=== PATIENT | female | born 1955 | race Caucasian/White ===

== ENCOUNTER 2020-03-10 17:13 | Inpatient (IN) ==
[2020-03-10] MEDS ORDERED: Aspirin 325 MG TABLET PO ONE (17:21)
[2020-03-10 18:02] LABS: Prothrombin Time 11.6 Seconds (9.4-12.1)
[2020-03-10 18:04] LABS: Activated Partial Thrombo Time 26.4 Seconds (26.0-36.0)
[2020-03-10 18:09] LABS: Basophils # 0.1 K/mcL (0.0-0.2); Basophils % 0.8 %; Eosinophils # 0.2 K/mcL (0.0-0.6); Eosinophils % 1.7 %; Hematocrit 41.4 % (35.3-44.9); Hemoglobin 13.7 g/dL (11.5-15.4); Lymphocytes # 1.5 K/mcL (0.6-4.6); Lymphocytes % 16.5 %; Mean Corpuscular HGB Conc 33.1 g/dL (31.6-35.5); Mean Corpuscular Hemoglobin 31.1 pg (28.0-33.3); Mean Corpuscular Volume 93.9 fL (83.0-100.0); Mean Platelet Volume 10.3 fL (9.4-12.4); Monocytes # 0.8 K/mcL (0.0-1.3); Monocytes % 8.7 %; Neutrophils # 6.5 K/mcL (1.6-8.9); Platelet Count 278 K/mcL (140-400); Red Blood Count 4.41 M/mcL (3.82-4.97); Red Cell Distribution Width 11.6 % (11.5-14.5); Segmented Neutrophils % 71.3 %; White Blood Count 9.2 K/mcL (4.3-11.1)
[2020-03-10] MEDS ORDERED: Isovue-370 500 ML BOTTLE IVP ONE (18:15)
[2020-03-10 18:36] LABS: Calcium 9.3 mg/dL (8.6-10.3); Potassium 4.5 mEq/L (3.5-5.1); Thyroid Stimulating Hormone 9.623 mcIU/mL (0.340-5.600); Troponin I 0.25 ng/mL (< 0.04)
[2020-03-10] MEDS ORDERED: 0.9 % Sodium Chloride 1,000 ML IVC ONE (18:38)
[2020-03-10 19:58] LABS: Bacteria,Urine Few per hpf (None-Few); Bilirubin,Urine Negative (Negative); Blood,Urine Negative (Negative); Clarity,Urine Clear (Clear); Color,Urine Light-Yellow (Yellow); Glucose,Urine (UA) Normal (Normal); Hyaline Casts,Urine Few per lpf (None Seen); Ketones,Urine Negative (Negative); Leukocyte Esterase,Urine Small (Negative); Nitrite,Urine Negative (Negative); PH,Urine 6.5 pH Units (5.0-8.0); Protein,Urine Negative (Neg-Trace); RBC,Urine 0-3 per hpf (0-3); Specific Gravity,Urine 1.017 (1.010-1.025); Squamous Epithelial Cell,Urine Few per hpf (None-Few); Urobilinogen,Urine Normal (Normal); WBC,Urine 15-30 per hpf (0-3)
[2020-03-10] MEDS ORDERED: Naloxone 0.4 MG/ML INJ IVP PRN (21:02)
[2020-03-10] MEDS ORDERED: Acetaminophen 325 MG TABLET PO PRN (21:02)
[2020-03-10 21:04] LABS: Adenovirus Not Detected (Not Detect); Bordetella Pertussis Not Detected (Not Detect); Chlamydophila pneumoniae Not Detected (Not Detect); Coronavirus 229E Not Detected (Not Detect); Coronavirus HKU1 Not Detected (Not Detect); Coronavirus NL63 Not Detected (Not Detect); Coronavirus OC43 Not Detected (Not Detect); Human Metapneumovirus Not Detected (Not Detect); Human Rhinovirus/Enterovirus Not Detected (Not Detect); Influenza A Subtype 2009 H1 Not Detected (Not Detect); Influenza B Not Detected (Not Detect); Parainfluenza Virus 1 Not Detected (Not Detect); Parainfluenza Virus 2 Not Detected (Not Detect); Parainfluenza Virus 3 Not Detected (Not Detect); Parainfluenza Virus 4 Not Detected (Not Detect); Respiratory Syncytial Virus Not Detected (Not Detect); SARS-CoV-2 Not Detected (Not Detect)
[2020-03-10 21:05] LABS: Mycoplasma pneumoniae Not Detected (Not Detect)
[2020-03-10] MEDS: Latanoprost 2.5 ML BOTTLE BOTH EYES SCH (22:33)
[2020-03-11 00:56] LABS: Hematocrit 37.3 % (35.3-44.9); Hemoglobin 12.2 g/dL (11.5-15.4); Mean Corpuscular HGB Conc 32.7 g/dL (31.6-35.5); Mean Corpuscular Hemoglobin 30.6 pg (28.0-33.3); Mean Corpuscular Volume 93.5 fL (83.0-100.0); Mean Platelet Volume 10.6 fL (9.4-12.4); Platelet Count 240 K/mcL (140-400); Red Blood Count 3.99 M/mcL (3.82-4.97); Red Cell Distribution Width 11.6 % (11.5-14.5)
[2020-03-11 01:08] LABS: Calcium 8.7 mg/dL (8.6-10.3); Chol/HDL Ratio 2.3 (0-4.9); Phosphorous 3.6 mg/dL (2.7-4.5); Potassium 3.9 mEq/L (3.5-5.1)
[2020-03-11] MEDS: *HR* Heparin 5,000 UNIT/ML VIAL SQ SCH ×3 (05:18→22:39)
[2020-03-11] MEDS ORDERED: carvediloL 6.25 MG TABLET PO SCH ×2 (08:00→17:00)
[2020-03-11] MEDS: Aspirin Enteric Coated 81 MG Tablet PO SCH (08:09)
[2020-03-11] MEDS: Gabapentin 100 MG CAPSULE PO SCH ×2 (08:15→22:38)
[2020-03-11] MEDS: Letrozole 2.5 MG TABLET PO SCH (12:53)
[2020-03-11] MEDS ORDERED: carvediloL 6.25 MG TABLET PO ONE (13:46)
[2020-03-11] MEDS ORDERED: 0.9 % Sodium Chloride 1,000 ML IVC SCH (14:30)
[2020-03-11] MEDS ORDERED: Amiodarone Premix 150 MG/100 ML BAG IVPB ONE (14:30)
[2020-03-11] MEDS ORDERED: Amiodarone Premix 360 MG/200 ML BAG IVC ONE (15:00)
[2020-03-11 15:47] LABS: Triiodothyronine (T3) Free 2.77 pg/mL (2.50-3.90)
[2020-03-11] MEDS: Latanoprost 2.5 ML BOTTLE BOTH EYES SCH (22:51)
[2020-03-11] MEDS: Amiodarone Premix 360 MG/200 ML BAG IVC SCH (23:52)
[2020-03-12 05:45] LABS: Hematocrit 38.4 % (35.3-44.9); Hemoglobin 12.2 g/dL (11.5-15.4); Mean Corpuscular HGB Conc 31.8 g/dL (31.6-35.5); Mean Corpuscular Hemoglobin 30.3 pg (28.0-33.3); Mean Corpuscular Volume 95.3 fL (83.0-100.0); Platelet Count 226 K/mcL (140-400); Red Blood Count 4.03 M/mcL (3.82-4.97); Red Cell Distribution Width 11.7 % (11.5-14.5); White Blood Count 6.6 K/mcL (4.3-11.1)
[2020-03-12 06:33] LABS: BUN/Creatinine Ratio 21 (6-26); Blood Urea Nitrogen 16 mg/dL (8-23); Calcium 8.9 mg/dL (8.6-10.3); Carbon Dioxide 26 mEq/L (23-29); Chloride 107 mEq/L (98-107); Glucose 88 mg/dL (70-105); Osmolality,Calculated 287 (280-300); Potassium 4.1 mEq/L (3.5-5.1); Sodium 138 mEq/L (136-145); eGFR For African Americans > 60 (> 60); eGFR For Non-African Americans > 60 (> 60)
[2020-03-12] MEDS: *HR* Heparin 5,000 UNIT/ML VIAL SQ SCH ×3 (06:44→20:52)
[2020-03-12] MEDS: Aspirin Enteric Coated 81 MG Tablet PO SCH (09:52)
[2020-03-12] MEDS: Gabapentin 100 MG CAPSULE PO SCH ×2 (09:53→20:52)
[2020-03-12] MEDS: Letrozole 2.5 MG TABLET PO SCH (09:53)
[2020-03-12] MEDS: carvediloL 25 MG TABLET PO SCH ×2 (09:53→17:25)
[2020-03-12] MEDS ORDERED: Nitroglycerin 1,000 MCG/10 ML VIAL IV ONE (10:43)
[2020-03-12] MEDS ORDERED: ISOVUE-370 200 ML INFUS..BTL ONE (10:43)
[2020-03-12] MEDS ORDERED: 0.9 % Sodium Chloride 1,000 ML ONE (10:43)
[2020-03-12] MEDS ORDERED: *HR* Heparin 10,000 UNIT/10 ML VIAL ONE (10:43)
[2020-03-12] MEDS ORDERED: Heparin 1,000 UNITS/500 mL 500 ML ONE (10:43)
[2020-03-12] MEDS ORDERED: Isovue-370 500 ML BOTTLE IVP ONE (11:32)
[2020-03-12 13:06] LABS: Basophils # 0.1 K/mcL (0.0-0.2); Eosinophils # 0.2 K/mcL (0.0-0.6); Eosinophils % 2.3 %; Hematocrit 39.3 % (35.3-44.9); Hemoglobin 13.1 g/dL (11.5-15.4); Immature Granulocytes % 0.3 % (0-4); Lymphocytes # 1.6 K/mcL (0.6-4.6); Lymphocytes % 19.9 %; Mean Corpuscular HGB Conc 33.3 g/dL (31.6-35.5); Mean Corpuscular Hemoglobin 31.2 pg (28.0-33.3); Mean Corpuscular Volume 93.6 fL (83.0-100.0); Mean Platelet Volume 11.2 fL (9.4-12.4); Monocytes # 0.8 K/mcL (0.0-1.3); Monocytes % 10.6 %; Neutrophils # 5.2 K/mcL (1.6-8.9); Platelet Count 247 K/mcL (140-400); Red Cell Distribution Width 11.5 % (11.5-14.5); Segmented Neutrophils % 65.9 %; White Blood Count 7.9 K/mcL (4.3-11.1)
[2020-03-12 13:12] LABS: INR 1.1; Prothrombin Time 12.4 Seconds (9.4-12.1)
[2020-03-12 13:16] LABS: Alanine Aminotransferase 18 Units/L (7-52); Albumin 3.9 g/dL (3.5-5.7); Albumin/Globulin Ratio 1.4 (1.1-2.2); Alkaline Phosphatase 106 Units/L (34-104); Aspartate Amino Transferase 23 Units/L (13-39); BUN/Creatinine Ratio 21 (6-26); Bilirubin,Total 0.6 mg/dL (0.3-1.0); Blood Urea Nitrogen 14 mg/dL (8-23); Calcium 9.2 mg/dL (8.6-10.3); Carbon Dioxide 23 mEq/L (23-29); Chloride 108 mEq/L (98-107); Globulin 2.8 g/dL (2.4-3.5); Glucose 102 mg/dL (70-105); Osmolality,Calculated 287 (280-300); Potassium 4.3 mEq/L (3.5-5.1); Sodium 138 mEq/L (136-145); Total Protein 6.7 g/dL (6.4-8.9); eGFR For African Americans > 60 (> 60); eGFR For Non-African Americans > 60 (> 60)
[2020-03-12] MEDS: Latanoprost 2.5 ML BOTTLE BOTH EYES SCH (20:52)
[2020-03-13] MEDS: Amiodarone Premix 360 MG/200 ML BAG IVC SCH (00:04)
[2020-03-13] MEDS: *HR* Heparin 5,000 UNIT/ML VIAL SQ SCH ×3 (06:32→20:39)
[2020-03-13] MEDS: Gabapentin 100 MG CAPSULE PO SCH ×2 (08:13→20:39)
[2020-03-13] MEDS: Aspirin Enteric Coated 81 MG Tablet PO SCH (08:13)
[2020-03-13] MEDS: Letrozole 2.5 MG TABLET PO SCH (08:13)
[2020-03-13] MEDS: carvediloL 25 MG TABLET PO SCH ×2 (08:13→16:28)
[2020-03-13] MEDS ORDERED: Perflutren Lipid Microsphere 1.3 ML in 0.9 % Sodium Chloride 8.7 ML IVP PRN (09:54)
[2020-03-13 10:15] LABS: Hematocrit 38.6 % (35.3-44.9); Mean Corpuscular HGB Conc 33.4 g/dL (31.6-35.5); Mean Corpuscular Hemoglobin 30.8 pg (28.0-33.3); Mean Corpuscular Volume 92.1 fL (83.0-100.0); Mean Platelet Volume 11.3 fL (9.4-12.4); Platelet Count 211 K/mcL (140-400); Red Blood Count 4.19 M/mcL (3.82-4.97); Red Cell Distribution Width 11.6 % (11.5-14.5); White Blood Count 8.6 K/mcL (4.3-11.1)
[2020-03-13 10:16] LABS: Hemoglobin 12.9 g/dL (11.5-15.4)
[2020-03-13 10:25] LABS: BUN/Creatinine Ratio 14 (6-26); Blood Urea Nitrogen 10 mg/dL (8-23); Calcium 9.1 mg/dL (8.6-10.3); Carbon Dioxide 25 mEq/L (23-29); Chloride 107 mEq/L (98-107); Glucose 107 mg/dL (70-105); Osmolality,Calculated 286 (280-300); Potassium 4.7 mEq/L (3.5-5.1); Sodium 138 mEq/L (136-145); eGFR For African Americans > 60 (> 60); eGFR For Non-African Americans > 60 (> 60)
[2020-03-13] MEDS ORDERED: 0.9 % Sodium Chloride 2,000 ML ONE (13:05)
[2020-03-13] MEDS ORDERED: *HR* Heparin 10,000 UNIT/10 ML VIAL ONE (13:05)
[2020-03-13] MEDS ORDERED: ISOVUE-370 200 ML INFUS..BTL ONE (13:05)
[2020-03-13] MEDS ORDERED: Heparin 1,000 UNITS/500 mL 500 ML ONE (13:05)
[2020-03-13] MEDS ORDERED: Nitroglycerin 1,000 MCG/10 ML VIAL IV ONE (13:06)
[2020-03-13] MEDS ORDERED: *HR* FentaNYL (PF) 100 MCG/2 ML VIAL ONE (13:54)
[2020-03-13] MEDS ORDERED: *HR* Midazolam HCl 2 MG/2 ML VIAL ONE (13:54)
[2020-03-13] MEDS: Latanoprost 2.5 ML BOTTLE BOTH EYES SCH (20:38)
[2020-03-13] MEDS: *HR* Amiodarone 200 MG TABLET PO SCH (20:39)
[2020-03-14] MEDS: Amiodarone Premix 360 MG/200 ML BAG IVC SCH ×2 (00:19→14:30)
[2020-03-14] MEDS: *HR* Heparin 5,000 UNIT/ML VIAL SQ SCH ×3 (04:26→20:57)
[2020-03-14 06:42] LABS: BUN/Creatinine Ratio 13 (6-26); Blood Urea Nitrogen 9 mg/dL (8-23); Calcium 9.2 mg/dL (8.6-10.3); Carbon Dioxide 24 mEq/L (23-29); Chloride 107 mEq/L (98-107); Glucose 107 mg/dL (70-105); Osmolality,Calculated 283 (280-300); Potassium 4.7 mEq/L (3.5-5.1); Sodium 137 mEq/L (136-145); eGFR For African Americans > 60 (> 60); eGFR For Non-African Americans > 60 (> 60)
[2020-03-14 06:44] LABS: Hematocrit 37.5 % (35.3-44.9); Hemoglobin 13.1 g/dL (11.5-15.4); Mean Corpuscular HGB Conc 34.9 g/dL (31.6-35.5); Mean Corpuscular Hemoglobin 31.6 pg (28.0-33.3); Mean Corpuscular Volume 90.6 fL (83.0-100.0); Mean Platelet Volume 11.7 fL (9.4-12.4); Platelet Count 180 K/mcL (140-400); Red Blood Count 4.14 M/mcL (3.82-4.97); Red Cell Distribution Width 11.5 % (11.5-14.5); White Blood Count 11.9 K/mcL (4.3-11.1)
[2020-03-14] MEDS: carvediloL 25 MG TABLET PO SCH ×2 (09:19→17:17)
[2020-03-14] MEDS: Aspirin Enteric Coated 81 MG Tablet PO SCH (09:19)
[2020-03-14] MEDS: *HR* Amiodarone 200 MG TABLET PO SCH ×2 (09:19→20:56)
[2020-03-14] MEDS: Letrozole 2.5 MG TABLET PO SCH (09:19)
[2020-03-14] MEDS: Gabapentin 100 MG CAPSULE PO SCH ×2 (09:20→20:57)
[2020-03-14] MEDS: Latanoprost 2.5 ML BOTTLE BOTH EYES SCH (20:57)
[2020-03-15 04:42] LABS: Hematocrit 35.8 % (35.3-44.9); Hemoglobin 11.9 g/dL (11.5-15.4); Mean Corpuscular HGB Conc 33.2 g/dL (31.6-35.5); Mean Corpuscular Hemoglobin 30.7 pg (28.0-33.3); Mean Corpuscular Volume 92.3 fL (83.0-100.0); Mean Platelet Volume 10.9 fL (9.4-12.4); Platelet Count 180 K/mcL (140-400); Red Blood Count 3.88 M/mcL (3.82-4.97); Red Cell Distribution Width 11.8 % (11.5-14.5); White Blood Count 12.5 K/mcL (4.3-11.1)
[2020-03-15 04:54] LABS: BUN/Creatinine Ratio 14 (6-26); Blood Urea Nitrogen 10 mg/dL (8-23); Calcium 8.8 mg/dL (8.6-10.3); Carbon Dioxide 24 mEq/L (23-29); Chloride 103 mEq/L (98-107); Glucose 110 mg/dL (70-105); Osmolality,Calculated 280 (280-300); Potassium 3.9 mEq/L (3.5-5.1); Sodium 135 mEq/L (136-145); eGFR For African Americans > 60 (> 60); eGFR For Non-African Americans > 60 (> 60)
[2020-03-15] MEDS: *HR* Heparin 5,000 UNIT/ML VIAL SQ SCH (05:01)
[2020-03-15 07:23] VITALS: BP 128/75
[2020-03-15] MEDS: Letrozole 2.5 MG TABLET PO SCH (08:03)
[2020-03-15] MEDS: Gabapentin 100 MG CAPSULE PO SCH (08:03)
[2020-03-15] MEDS: Aspirin Enteric Coated 81 MG Tablet PO SCH (08:03)
[2020-03-15] MEDS: carvediloL 25 MG TABLET PO SCH (08:03)
[2020-03-15] MEDS: *HR* Amiodarone 200 MG TABLET PO SCH (08:04)
[2020-03-15] MEDS ORDERED: *HR* Amiodarone 200 MG TABLET PO SCH (09:00)
== END 2020-03-15 13:46 | disposition home or self-care (01) | DRG 281 ==
LOC: 2ANU 17:13 → EMEROOARM 17:13 → SUATTDRO 21:10 → 2ANU 23:28 → 2NNU 03-11 17:43
PROVIDERS: ADMIT Internal Medicine; ATTEND Family Medicine

== ENCOUNTER 2021-04-24 09:07 | Observation (INO) ==
[2021-04-24 10:35] LABS: Basophils % 0.5 %; Eosinophils # 0.1 K/mcL (0.0-0.6); Eosinophils % 1.5 %; Hematocrit 38.2 % (35.3-44.9); Hemoglobin 12.5 g/dL (11.5-15.4); Immature Granulocytes % 0.2 % (0-4); Lymphocytes # 0.6 K/mcL (0.6-4.6); Mean Corpuscular HGB Conc 32.7 g/dL (31.6-35.5); Mean Corpuscular Hemoglobin 31.7 pg (28.0-33.3); Mean Platelet Volume 10.6 fL (9.4-12.4); Monocytes # 0.9 K/mcL (0.0-1.3); Monocytes % 10.5 %; Neutrophils # 6.8 K/mcL (1.6-8.9); Platelet Count 190 K/mcL (140-400); Red Blood Count 3.94 M/mcL (3.82-4.97); Red Cell Distribution Width 11.9 % (11.5-14.5); Segmented Neutrophils % 80.3 %; White Blood Count 8.5 K/mcL (4.3-11.1)
[2021-04-24 10:48] LABS: Prothrombin Time 11.5 Seconds (9.4-12.1)
[2021-04-24 10:50] LABS: Activated Partial Thrombo Time 28.3 Seconds (26.0-36.0)
[2021-04-24 10:50] LABS: BUN/Creatinine Ratio 14 (6-26); Blood Urea Nitrogen 12 mg/dL (8-23); Carbon Dioxide 28 mEq/L (23-29); Chloride 104 mEq/L (98-107); Glucose 108 mg/dL (70-105); Magnesium 1.9 mg/dL (1.6-2.6); Osmolality,Calculated 288 (280-300); Sodium 139 mEq/L (136-145); Troponin I < 0.03 ng/mL (< 0.04); eGFR For African Americans > 60 (> 60); eGFR For Non-African Americans > 60 (> 60)
[2021-04-24] MEDS ORDERED: Magnesium Sulfate 1 GM/102 ML PIGGYBACK IVPB ONE (11:16)
[2021-04-24] MEDS ORDERED: Naloxone 0.4 MG/ML INJ IVP PRN (17:39)
[2021-04-24] MEDS ORDERED: Ondansetron 4 MG/2 ML VIAL IVP PRN (17:39)
[2021-04-24] MEDS: carvediloL 25 MG TABLET PO SCH (21:07)
[2021-04-24] MEDS: *HR* Heparin 5,000 UNIT/ML VIAL SQ SCH (21:07)
[2021-04-24] MEDS: Gabapentin 100 MG CAPSULE PO SCH (21:07)
[2021-04-25 05:32] LABS: Basophils % 0.6 %; Eosinophils # 0.1 K/mcL (0.0-0.6); Eosinophils % 2.3 %; Hematocrit 38.1 % (35.3-44.9); Hemoglobin 12.4 g/dL (11.5-15.4); Immature Granulocytes % 0.2 % (0-4); Lymphocytes # 0.9 K/mcL (0.6-4.6); Lymphocytes % 18.5 %; Mean Corpuscular HGB Conc 32.5 g/dL (31.6-35.5); Mean Corpuscular Hemoglobin 31.5 pg (28.0-33.3); Mean Corpuscular Volume 96.7 fL (83.0-100.0); Mean Platelet Volume 10.6 fL (9.4-12.4); Monocytes # 0.8 K/mcL (0.0-1.3); Monocytes % 17.3 %; Neutrophils # 2.9 K/mcL (1.6-8.9); Platelet Count 201 K/mcL (140-400); Red Blood Count 3.94 M/mcL (3.82-4.97); Segmented Neutrophils % 61.1 %; White Blood Count 4.8 K/mcL (4.3-11.1)
[2021-04-25] MEDS: Levothyroxine 25 MCG TABLET PO SCH (05:40)
[2021-04-25] MEDS: *HR* Heparin 5,000 UNIT/ML VIAL SQ SCH ×3 (05:40→20:57)
[2021-04-25 05:57] LABS: BUN/Creatinine Ratio 12 (6-26); Blood Urea Nitrogen 10 mg/dL (8-23); Calcium 8.9 mg/dL (8.6-10.3); Carbon Dioxide 30 mEq/L (23-29); Chloride 103 mEq/L (98-107); Glucose 85 mg/dL (70-105); Magnesium 2.2 mg/dL (1.6-2.6); Osmolality,Calculated 290 (280-300); Potassium 3.6 mEq/L (3.5-5.1); Sodium 141 mEq/L (136-145); Troponin I < 0.03 ng/mL (< 0.04); eGFR For African Americans > 60 (> 60); eGFR For Non-African Americans > 60 (> 60)
[2021-04-25] MEDS: Aspirin Enteric Coated 81 MG Tablet PO SCH (07:45)
[2021-04-25] MEDS: carvediloL 25 MG TABLET PO SCH ×2 (07:45→16:46)
[2021-04-25] MEDS: Furosemide 20 MG TABLET PO SCH (07:46)
[2021-04-25] MEDS: amLODIPine 5 MG TABLET PO SCH (07:46)
[2021-04-25] MEDS: Gabapentin 100 MG CAPSULE PO SCH ×2 (07:46→20:56)
[2021-04-26 01:34] LABS: Basophils % 0.6 %; Eosinophils # 0.1 K/mcL (0.0-0.6); Eosinophils % 2.2 %; Hematocrit 37.5 % (35.3-44.9); Hemoglobin 12.1 g/dL (11.5-15.4); Immature Granulocytes % 0.4 % (0-4); Lymphocytes # 1.4 K/mcL (0.6-4.6); Lymphocytes % 27.1 %; Mean Corpuscular HGB Conc 32.3 g/dL (31.6-35.5); Mean Corpuscular Hemoglobin 30.8 pg (28.0-33.3); Mean Corpuscular Volume 95.4 fL (83.0-100.0); Mean Platelet Volume 10.7 fL (9.4-12.4); Monocytes # 0.8 K/mcL (0.0-1.3); Monocytes % 14.9 %; Neutrophils # 2.8 K/mcL (1.6-8.9); Platelet Count 175 K/mcL (140-400); Red Blood Count 3.93 M/mcL (3.82-4.97); Red Cell Distribution Width 12.1 % (11.5-14.5); Segmented Neutrophils % 54.8 %; White Blood Count 5.1 K/mcL (4.3-11.1)
[2021-04-26 01:42] LABS: BUN/Creatinine Ratio 12 (6-26); Blood Urea Nitrogen 11 mg/dL (8-23); Calcium 8.8 mg/dL (8.6-10.3); Carbon Dioxide 29 mEq/L (23-29); Chloride 107 mEq/L (98-107); Glucose 91 mg/dL (70-105); Osmolality,Calculated 291 (280-300); Potassium 3.9 mEq/L (3.5-5.1); Sodium 141 mEq/L (136-145); eGFR For African Americans > 60 (> 60); eGFR For Non-African Americans > 60 (> 60)
[2021-04-26 03:22] VITALS: PULSE 60
[2021-04-26] MEDS: *HR* Heparin 5,000 UNIT/ML VIAL SQ SCH (06:02)
[2021-04-26] MEDS: Levothyroxine 25 MCG TABLET PO SCH (06:02)
[2021-04-26 07:02] VITALS: BP 164/96; TEMP 97.5; O2SAT 94
[2021-04-26] MEDS: Gabapentin 100 MG CAPSULE PO SCH (09:35)
[2021-04-26] MEDS: amLODIPine 5 MG TABLET PO SCH (09:37)
[2021-04-26] MEDS: carvediloL 25 MG TABLET PO SCH (09:37)
[2021-04-26] MEDS: Aspirin Enteric Coated 81 MG Tablet PO SCH (09:37)
[2021-04-26] MEDS: Furosemide 20 MG TABLET PO SCH (09:37)
== END 2021-04-26 11:30 | disposition home or self-care (01) ==
LOC: 3BNU 09:07 → EMEROOARM 09:07 → SUATTDRO 18:09 → 3BNU 18:53
PROVIDERS: ADMIT Family Medicine; ATTEND Internal Medicine